=== PATIENT | female | born 1950 | race Caucasian/White ===

== ENCOUNTER 2023-10-10 07:15 | Observation (INO) | payer MEDICARE, OTHER ==
[~2023-10-10] VITALS: Ht 162.6 cm; Wt 89.8 kg
[2023-10-10 08:34] LABS: BASOPHILS ABSOLUTE AUTO 0.05 K/mm3 (0.00-0.23); BASOPHILS PERCENT AUTO 1 % (0-2); EOSINOPHILS ABSOLUTE AUTO 0.16 K/mm3 (0.00-0.68); EOSINOPHILS PERCENT AUTO 2 % (0-6); Hematocrit 39.4 % (33.0-51.0); Hemoglobin 13.1 g/dL (11.5-16.0); IMMATURE GRAN ABSOLUTE AUTO 0.02 K/mm3 (0.00-0.10); IMMATURE GRAN PERCENT AUTO 0 % (0-1); LYMPHOCYTES ABSOLUTE AUTO 1.63 K/mm3 (0.84-5.20); LYMPHOCYTES PERCENT AUTO 24 % (21-46); MONOCYTES ABSOLUTE AUTO 0.64 K/mm3 (0.16-1.47); MONOCYTES PERCENT AUTO 9 % (4-13); Mean Corpuscular HGB 31.1 pg (26.0-34.0); Mean Corpuscular HGB Conc 33.2 g/dL (31.5-36.5); Mean Corpuscular Volume 94 fL (80-100); Mean Platelet Volume 9.4 fL (9.1-12.4); NEUTROPHILS ABSOLUTE AUTO 4.39 K/mm3 (1.96-9.15); NEUTROPHILS PERCENT AUTO 64 % (41-73); Platelet Count 294 K/mm3 (150-400); RDW Coefficient Variation 12.3 % (11.7-14.2); RDW Standard Deviation 42.5 fL (35.1-46.3); Red Blood Cell Count 4.21 M/mm3 (3.80-5.20); White Blood Cell Count 6.89 K/mm3 (4.00-11.30)
[2023-10-10 09:07] LABS: Albumin, Blood 3.2 g/dL (3.4-5.0); Bilirubin, Total 0.4 mg/dL (0.1-1.0); Bun/Creatinine Ratio 18.7 (12.0-20.0); Calcium, Blood 8.2 mg/dL (8.5-10.1); Creatinine, Blood 0.7 mg/dL (0.40-1.00); Globulin, Blood 3.2 g/dL (2.2-4.0); Total Protein, Blood 6.4 g/dL (6.4-8.2)
[2023-10-10] MEDS ORDERED: METFORMIN HCL500 M3 PO ×2 (15:09)
[2023-10-10] MEDS ORDERED: SYNTHROID100 M14 PO ×2 (15:10)
[2023-10-10] MEDS ORDERED: Clopidogrel Bisulfate 75 MG Tab PO ONE (15:10)
[2023-10-10] MEDS ORDERED: Aspirin 81 MG Chew PO ONE (15:10)
[2023-10-10] MEDS ORDERED: LOSA50 PO ×2 (15:10)
[2023-10-10] MEDS ORDERED: Acetaminophen 325 MG TABLET PO PRN (15:20)
[2023-10-10] MEDS ORDERED: MetFORMIN HCl 500 mg PO SCH (17:00)
--- NOTE | 2023-10-10 18:40 | NUR ---
PATIENT TO FLOOR, NO DINNER TRAY SENT TO ER OR MEDICAL FLOOR
[2023-10-10 18:41] VITALS: BP 174/86
[2023-10-10 19:44] VITALS: BP 157/66
--- NOTE | 2023-10-10 23:10 | NUR ---
PT ARRIVED AT THE END OF THE PREVIOUS SHIFT, DURING THE SHIFT CHANGE (1844) TO THE MEDICAL FLOOR RM#[id number]. BY THE BEDSIDE. PT IS INDEPENDENT IN THE ROOM WITH BRP. PT IS A&O X4, COOPERATIVE WITH CARE. TELEMETRY IS SINUS RHYTHM IN THE 70'S. CHARGE NURSE ABHIJIT Lieberman COMPLETED THE ADMISSION ASSESSMENT, HEALTH HX, AND MEDICATION RECONCILIATION. SKIN CHECK WITH THIS ROLLER GOLD LEAF. PT DENIES PAIN AND DISCOMFORT AT THIS TIME. BED AT THE LOWEST POSITION, CALL LIGHT WITHIN REACH.
[2023-10-11 03:11] VITALS: BP 151/87
[2023-10-11] MEDS ORDERED: Levothyroxine Sodium 0.1 MG Tab PO SCH ×2 (06:00→09:00)
[2023-10-11 06:34] LABS: CHOL/HDL RATIO 5.1; Cholesterol 288 mg/dL (50-200); HDL Cholesterol 57 mg/dL (>39); LDL/HDL RATIO 3.1; Low Density Lipoprotein Chol 177 mg/dL (0-110); Triglycerides 271 mg/dL (30-160); Very Low Density Lipoprot Chol 54 mg/dL (6-32)
[2023-10-11 07:25] VITALS: BP 159/77
[2023-10-11] MEDS ORDERED: Heparin Sodium,Porcine 5,000 UNIT/0.5 ML SDV SC SCH (09:00)
[2023-10-11] MEDS ORDERED: Aspirin 325 MG Tab PO SCH (09:00)
[2023-10-11] MEDS ORDERED: Clopidogrel Bisulfate 75 MG Tab PO SCH (09:00)
[2023-10-11 16:15] VITALS: BP 152/93
[2023-10-11] MEDS ORDERED: ATOR80 PO ×2 (18:00)
[2023-10-11] MEDS ORDERED: CLOP75 PO ×2 (18:00)
[2023-10-11] MEDS ORDERED: ASPI325 PO ×2 (18:00)
--- NOTE | 2023-10-11 18:15 | NUR ---
PT REQUESTED PRESCRIPTIONS BE CALLED INTO [facility] IN [place] AT [phone]. ORDERS CALLED IN PER PT REQUEST. HAD TO LEAVE A MESSAGE.
--- NOTE | 2023-10-11 18:55 | NUR ---
DISHARGE NOTE PT WAS RECEPTIVE TO DISCHARGE TEACHING. PER DR. HERNANDEZ, PT COULD DISCHARGE POST COMPLETION OF ECHOCARDIOGRAM. PT WAS WHEELED OUT BY OPERATIONS PROJECT MANAGER AND WAS ESCORTED BY . PT REPORTED LOSING AN EARING IN THE ER, SPOUSE WENT TO ER TO INQUIRE BUT THEY DID NOT HAVE EARING. PT PACKED UP BELONGINGS.
== END 2023-10-11 19:51 | disposition home or self-care (01) ==
LOC: ER 07:15 → MEDS 07:16
PROVIDERS: Emergency Medicine; ADMIT Internal Medicine
DX: I63.9 Cerebral infarction, unspecified (principal); E78.5 Hyperlipidemia, unspecified; I10 Essential (primary) hypertension; E03.9 Hypothyroidism, unspecified; E11.9 Type 2 diabetes mellitus without complications; Z88.5 Allergy status to narcotic agent; Z91.013 Allergy to seafood; Z79.84 Long term (current) use of oral hypoglycemic drugs; Z79.899 Other long term (current) drug therapy; Z79.82 Long term (current) use of aspirin
CPT/HCPCS: 36415; 70450; 70496; 70498; 70551; 80053; 80061; 85025; 93005; 93010; 93306; 96372; 97161; 99285-25; A9270; G0378; J1644; Q9967

== ENCOUNTER 2023-10-16 14:06 | Emergency (ER) | payer MEDICARE, OTHER ==
[~2023-10-16] VITALS: Ht 162.6 cm; Wt 86.6 kg
[~2023-10-16 14:06] MED LIST: ASPI325 PO; ATOR80 PO; CLOP75 PO; LOSA50 PO; METFORMIN HCL500 M3 PO; SYNTHROID100 M14 PO
[2023-10-16] MEDS ORDERED: ASPI325 PO (16:13)
[2023-10-16] MEDS ORDERED: ATOR40TA PO (16:13)
[2023-10-16] MEDS ORDERED: CLOP75 PO (16:13)
[2023-10-17] MEDS ORDERED: LEVSOD100 PO (11:48)
== END 2023-10-16 16:40 | disposition home or self-care (01) ==
LOC: ER 14:06
DX: R20.2 Paresthesia of skin (principal); Z82.3 Family history of stroke; Z88.5 Allergy status to narcotic agent; Z91.013 Allergy to seafood; Z79.899 Other long term (current) drug therapy; Z79.82 Long term (current) use of aspirin; Z79.84 Long term (current) use of oral hypoglycemic drugs; I10 Essential (primary) hypertension; E78.5 Hyperlipidemia, unspecified; E03.9 Hypothyroidism, unspecified; E11.9 Type 2 diabetes mellitus without complications
CPT/HCPCS: 99283

== ENCOUNTER 2023-10-17 11:35 | Emergency (ER) | payer MEDICARE, OTHER ==
[~2023-10-17] VITALS: Ht 162.6 cm; Wt 86.6 kg
[~2023-10-17 11:35] MED LIST changes: +ATOR40TA PO
[2023-10-17] MEDS ORDERED: LEVSOD100 PO (11:48)
[2023-10-17] MEDS ORDERED: Levothyroxine Sodium 0.1 MG Tab PO ONE (11:50)
== END 2023-10-17 12:01 | disposition home or self-care (01) ==
LOC: ER 11:35
DX: Z76.0 Encounter for issue of repeat prescription (principal); Z91.013 Allergy to seafood; Z88.5 Allergy status to narcotic agent; Z79.899 Other long term (current) drug therapy; Z79.82 Long term (current) use of aspirin; Z79.84 Long term (current) use of oral hypoglycemic drugs; I10 Essential (primary) hypertension; E78.5 Hyperlipidemia, unspecified
CPT/HCPCS: 99281; A9270